=== PATIENT | male | born 1980 | race Two or more races ===

== ENCOUNTER 2017-01-31 23:40 | Emergency (ER) | payer OTHER, BC ==
[~2017-01-31] VITALS: Ht 172.7 cm; Wt 71.4 kg
[2017-02-01] MEDS ORDERED: NORCO 5/3251 TABLET PO (02:03)
[2017-02-01] MEDS ORDERED: FLEXERIL10 MG PO (02:03)
[2017-02-01 02:21] VITALS: BP 139/72
== END 2017-02-01 02:22 | disposition home or self-care (01) ==
LOC: EME 23:40 → EXP 23:40
DX: S16.1XXA Strain of muscle, fascia and tendon at neck level, initial encounter (principal); V43.52XA Car driver injured in collision with other type car in traffic accident, initial encounter
CPT/HCPCS: 99281; 99284